=== PATIENT | female | born 1985 | race Caucasian/White ===

== ENCOUNTER 2016-11-18 11:18 | Emergency (ER) | payer MEDICAID ==
[~2016-11-18] VITALS: Ht 165.1 cm; Wt 74.2 kg
[2016-11-18 14:11] LABS: BASOPHIL % 0.6 % (0-2); PLATELET COUNT 307 x10^3mcL (130-400); RED CELL DISTRIBUTION WIDTH 13.1 % (11.5-14.5)
[2016-11-18 14:25] LABS: CALCIUM 8.5 mg/dL (8.5-10.1); CARBON DIOXIDE 29.7 mmol/L (21-32); CHLORIDE SERUM 103 mmol/L (98-107); CREATININE SERUM 0.5 mg/dL (0.6-1.0); GFR1 > 60 mL/min; GLUCOSE SERUM 113 mg/dL (74-106); POTASSIUM SERUM 3.8 mmol/L (3.5-5.1); SODIUM SERUM 137 mmol/L (136-145)
[2016-11-18 14:30] LABS: ALKALINE PHOSPHATASE 36 U/L (46-116); ALT/SGPT 39 U/L (14-59); AMYLASE 58 U/L (25-115); AST/SGOT 19 U/L (15-37); BILIRUBIN TOTAL 0.25 mg/dL (0.20-1.00); LIPASE 154 IU/L (73-393); TOTAL PROTEIN, SERUM 6.6 g/dL (6.4-8.2)
[2016-11-18 14:35] LABS: ALBUMIN 3.3 g/dL (3.4-5.0)
[2016-11-18 16:11] VITALS: BP 113/66
== END 2016-11-18 16:11 | disposition home or self-care (01) ==
LOC: ED 11:18
PROVIDERS: Specialist
DX: O21.0 Mild hyperemesis gravidarum (principal); Z3A.10 10 weeks gestation of pregnancy; Z90.49 Acquired absence of other specified parts of digestive tract; Z90.89 Acquired absence of other organs
CPT/HCPCS: J2765; J7042